=== PATIENT | female | born 1990 | race Hispanic/Latino ===

== ENCOUNTER 2023-07-31 10:34 | Emergency (ER) | payer OTHER ==
[~2023-07-31] VITALS: Ht 162.6 cm; Wt 72.6 kg
[2023-07-31 10:48] VITALS: BP 153/73; PULSE 80; RESP 18
[2023-07-31] MEDS: CYCLOBENZAPRINE HCL 10 MG TABLET PO ONE (11:25)
[2023-07-31] MEDS: IBUPROFEN 600 MG TABLET PO ONE (11:29)
[2023-07-31 11:31] LABS: APPEARANCE,URINE CLEAR (CLEAR); BILIRUBIN,URINE NEGATIVE (NEGATIVE); COLOR,URINE COLORLESS (YELLOW); GLUCOSE, URINE (UA) NEGATIVE (NEGATIVE); KETONES,URINE NEGATIVE (NEGATIVE); LEUKOCYTE ESTERASE ,URINE NEGATIVE Leu/uL (NEGATIVE); NITRATE,URINE NEGATIVE (NEGATIVE); OCCULT BLOOD,URINE NEGATIVE (NEGATIVE); PH,URINE 6.5 (5.0-8.0); PROTEIN,URINE NEGATIVE (NEGATIVE); UROBILINOGEN,URINE 0.2 mg/dL (0.2-1.0)
[2023-07-31 11:35] LABS: HCG,QUALITATIVE URINE NEGATIVE (NEGATIVE)
[2023-07-31 11:48] LABS: ADD UA MICROSCOPIC YES
[2023-07-31 11:54] LABS: BACTERIA,URINE None Seen /HPF (None Seen); RBC,URINE 0-1 /HPF (0-1)
[2023-07-31] MEDS ORDERED: CYCL5TAB PO (12:46)
[2023-07-31] MEDS ORDERED: IBUP-2070 PO (12:46)
== END 2023-07-31 13:20 | disposition home or self-care (01) ==
LOC: EDH 10:34
DX: S46.811A Strain of other muscles, fascia and tendons at shoulder and upper arm level, right arm, initial encounter (principal); W18.39XA Other fall on same level, initial encounter; Y93.89 Activity, other specified; Y92.89 Other specified places as the place of occurrence of the external cause; Y99.8 Other external cause status
CPT/HCPCS: 72100; 81001; 81025